=== PATIENT | female | born 1990 | race Caucasian/White ===

== ENCOUNTER 2022-01-20 17:12 | Emergency (ER) | payer BC, OTHER ==
[~2022-01-20] VITALS: Ht 167.6 cm; Wt 78.9 kg
[2022-01-20 17:29] VITALS: BP 119/72
--- NOTE | 2022-01-20 17:52 | NUR ---
C/O LT ANKLE INJURY
[2022-01-20] MEDS ORDERED: ACETAMINOPHEN 325 MG TABLET PO ONE (18:00)
[2022-01-20] MEDS ORDERED: ACETAMINOPHEN 325 MG TABLET ONE (18:32)
--- NOTE | 2022-01-20 19:29 | NUR ---
Patient discharged to home in stable condition. Written and verbal after care instructions given. Patient verbalizes understanding of instruction.
== END 2022-01-20 21:30 | disposition home or self-care (01) ==
LOC: ER 17:19
DX: S93.492A Sprain of other ligament of left ankle, initial encounter (principal); W22.8XXA Striking against or struck by other objects, initial encounter; Y93.01 Activity, walking, marching and hiking; Y92.89 Other specified places as the place of occurrence of the external cause; Y99.8 Other external cause status
CPT/HCPCS: 73610-TC